=== PATIENT | female | born 2000 | race Two or more races ===

== ENCOUNTER 2018-02-20 22:36 | Emergency (ER) | payer MEDICAID, OTHER ==
[~2018-02-20] VITALS: Ht 172.7 cm; Wt 54.5 kg
[2018-02-20 22:42] VITALS: BP 127/81
[2018-02-20] MEDS ORDERED: HYDR-565 PO (23:28)
[2018-02-20] MEDS ORDERED: CLIN300C53 PO (23:29)
[2018-02-20] MEDS ORDERED: IBUP-1984 PO (23:30)
== END 2018-02-20 23:41 | disposition home or self-care (01) ==
LOC: ER 22:37
DX: K08.89 Other specified disorders of teeth and supporting structures (principal); Z79.899 Other long term (current) drug therapy
CPT/HCPCS: 99283

== ENCOUNTER 2018-06-29 13:04 | Outpatient (CLI) | payer MEDICAID, OTHER ==
[2018-06-29 13:03] VITALS: BP 133/89
[~2018-06-29 13:04] MED LIST: HYDR-565 PO; IBUP-1986 PO
== END 2018-06-29 13:55 | disposition home or self-care (01) ==
LOC: ORTHO 13:04
PROVIDERS: ATTEND Nurse Practitioner Family
DX: M75.42 Impingement syndrome of left shoulder (principal); F17.200 Nicotine dependence, unspecified, uncomplicated
CPT/HCPCS: 99213

== ENCOUNTER 2018-07-01 10:14 | Outpatient (CLI) | payer MEDICAID ==
[2018-07-01] MEDS ORDERED: iohexol 300mg/ml 100ml inj. ONE (10:37)
== END 2018-07-01 23:59 | disposition home or self-care (01) ==
LOC: 64 CT 10:14
PROVIDERS: ATTEND Nurse Practitioner Family
DX: M85.622 Other cyst of bone, left upper arm (principal); F17.200 Nicotine dependence, unspecified, uncomplicated
CPT/HCPCS: 73202; J7030; Q9967

== ENCOUNTER 2018-07-21 11:26 | Outpatient (CLI) | payer MEDICAID ==
[~2018-07-21 11:26] MED LIST changes: -HYDR-565 PO
[2018-07-21 11:31] VITALS: BP 128/80
== END 2018-07-21 12:53 | disposition home or self-care (01) ==
LOC: ORTHO 11:26
PROVIDERS: ATTEND Nurse Practitioner Family
DX: M75.42 Impingement syndrome of left shoulder (principal); F12.90 Cannabis use, unspecified, uncomplicated; F17.210 Nicotine dependence, cigarettes, uncomplicated
CPT/HCPCS: 99213

== ENCOUNTER 2018-07-23 17:25 | Emergency (ER) | payer MEDICAID ==
[~2018-07-23] VITALS: Ht 172.7 cm; Wt 57.8 kg
[2018-07-23 19:20] VITALS: BP 116/62
[2018-07-23] MEDS ORDERED: IBUP-1985 PO (20:28)
== END 2018-07-23 20:56 | disposition home or self-care (01) ==
LOC: ER 17:25
DX: S50.11XA Contusion of right forearm, initial encounter (principal); S60.221A Contusion of right hand, initial encounter; F12.90 Cannabis use, unspecified, uncomplicated; Z79.899 Other long term (current) drug therapy; W22.8XXA Striking against or struck by other objects, initial encounter; Y93.89 Activity, other specified; Y92.89 Other specified places as the place of occurrence of the external cause; Y99.8 Other external cause status
CPT/HCPCS: 29125; 73110; 99284

== ENCOUNTER 2018-10-20 12:12 | Outpatient (CLI) | payer MEDICAID ==
[2018-10-20 11:50] VITALS: BP 123/83
[~2018-10-20 12:12] MED LIST changes: +IBUP-1985 PO
== END 2018-10-20 12:47 | disposition home or self-care (01) ==
LOC: ORTHO 12:12
PROVIDERS: ATTEND Nurse Practitioner Family
DX: M75.42 Impingement syndrome of left shoulder (principal); F12.90 Cannabis use, unspecified, uncomplicated; F17.210 Nicotine dependence, cigarettes, uncomplicated; Z60.2 Problems related to living alone
CPT/HCPCS: 73030; 99213

== ENCOUNTER 2020-09-09 14:22 | Emergency (ER) | payer MEDICAID ==
[~2020-09-09] VITALS: Ht 172.7 cm; Wt 61.4 kg
[2020-09-09 14:53] VITALS: BP 141/89
== END 2020-09-09 15:57 | disposition home or self-care (01) ==
LOC: ER 14:22
DX: U07.1 COVID-19 (principal); F12.10 Cannabis abuse, uncomplicated; Z79.899 Other long term (current) drug therapy
CPT/HCPCS: 36415; 87635; 99283